=== PATIENT | male | born 1965 | race African-American/Black ===

== ENCOUNTER 2020-03-13 13:51 | Outpatient (CLI) | payer OTHER | END 2020-03-13 15:00 | disposition home or self-care (01) | LOC: RAD 13:51 | DX: S46.002D Unspecified injury of muscle(s) and tendon(s) of the rotator cuff of left shoulder, subsequent encounter (principal) ==

== ENCOUNTER → 2021-03-26 | Outpatient (CLI) | payer OTHER | END | disposition home or self-care (01) | LOC: RAD 09:00 | PROVIDERS: ATTEND Radiology Diagnostic Radiology | DX: R07.89 Other chest pain (principal) ==